=== PATIENT | male | born 1980 | race African-American/Black ===

== ENCOUNTER 2018-12-19 02:22 | Inpatient (IN) ==
[2018-12-19] MEDS ORDERED: SODIUM CHLORIDE 0.9% 1,000 ML IV STA (04:23)
[2018-12-19 04:37] LABS: Basophils % 0.3 % (0.0-0.8); Eosinophils % 0.2 % (0.00-10.9); Hematocrit 31.2 VOL% (42.0-52.0); Hemoglobin 10.4 GM/DL (14.0-18.0); Immature Granulocytes % 0.5 %; Immature Granulocytes Absolute 0.03 #; Lymphocytes # 1.6 10*3/uL (1.4-4.0); Lymphocytes % 23.9 % (21.2-54.2); Mean Corpuscular HGB Conc 33.3 GM/DL (32-36); Mean Corpuscular Volume 73.4 FL (87-102); Mean Platelet Volume 12.1 FL (9.6-12.0); Monocytes % 16.6 % (1.7-12.7); Neutrophils % 58.5 % (38.7-73.9); Platelet Count 88 T/CUMM (130-400); Red Blood Count 4.25 MC/CUMM (3.8-5.5); Red Cell Distribution Width 15.6 % (9.3-17.3); White Blood Count 6.6 T/CUMM (4-12)
[2018-12-19 04:49] LABS: Alanine Aminotransferase 273 U/L (16-61); Albumin 3.1 G/DL (3.4-5.0); Alkaline Phosphatase 40 U/L (45-117); Aspartate Amino Transferase 207 U/L (0-37); Blood Urea Nitrogen 25 MG/DL (7-18); Calcium 8.4 MG/DL (8.5-10.1); Glucose 90 MG/DL (74-106); Osmolality,Calculated 284.3 MOS/KG (273-304); Total Protein 6.7 G/DL (6.4-8.3)
[2018-12-19] MEDS ORDERED: LORazepam 2 MG/1 ML VIAL IV STA ×2 (04:56→05:48)
[2018-12-19] MEDS ORDERED: LORazepam 2 MG/1 ML VIAL ONE (04:57)
[2018-12-19 05:12] LABS: Lymphocytes 23 % (20-55); Nucleated Red Blood Cells 1 (0-5); Segmented Neutrophils 68 % (50-85); Total Cells Counted 100
[2018-12-19 05:13] LABS: Platelet Estimate Decreased; Polychromasia Few; Target Cells Few
[2018-12-19] MEDS ORDERED: KETAMINE 500 MG/10 ML VIAL IM STA (07:30)
[2018-12-19] MEDS ORDERED: KETAMINE 500 MG/10 ML VIAL ONE (07:32)
[2018-12-19] MEDS ORDERED: ONDANSETRON 4 MG/2 ML VIAL IV PRN (08:38)
[2018-12-19] MEDS ORDERED: ALBUTEROL 2.5 MG/3 ML NEB RESP TX PRN (08:38)
[2018-12-19 10:44] LABS: Amorphous Crystals,Urine Few /HPF (Few); Apearance,Urine Slightly Hazy (Clear); Bacteria,Urine Occasional /HPF (Few); Bilirubin,Urine Negative (Negative); Blood, Urine Small mg/dL (Negative); Glucose,Urine (UA) Negative (Negative); Hyaline Casts,Urine 16 /LPF (0-3); Ketones,Urine 5 mg/dL (Negative); Mucus,Urine Few /LPF (Occasional); Nitrite,Urine Negative (Negative); Protein,Urine >=500 MG/DL; RBC,Urine 4 /HPF (0-4); Urine Color Amber (Yellow); Urine Specific Gravity 1.028 (1.001-1.035); WBC,Urine 2 /HPF (0-6)
[2018-12-19 10:47] LABS: Barbiturates Screen,Urine Negative (Negative); Benzodiazepines Screen,Urine Positive (Negative); Cannabinoid Screen,Urine Negative (Negative); Opiate Screen,Urine Negative (Negative); Phencyclidine Screen,Urine Negative (Negative)
[2018-12-19] MEDS ORDERED: PANTOPRAZOLE 40 MG VIAL IV ONE (11:25)
[2018-12-19] MEDS: SODIUM CHLORIDE 0.9% 1,000 ML IV SCH (11:28)
[2018-12-19] MEDS: ENOXAPARIN 40 MG/0.4 ML SYRINGE SUBCUT SCH (11:32)
[2018-12-19] MEDS: FAMOTIDINE 20 MG/2 ML VIAL IV SCH ×2 (11:33→21:59)
[2018-12-19] MEDS: LORazepam 2 MG/1 ML VIAL IV PRN (13:04)
[2018-12-19] MEDS: hydrALAZINE 20 MG/1 ML VIAL IV PRN (23:11)
[2018-12-20] MEDS: SODIUM CHLORIDE 0.9% 1,000 ML IV SCH ×2 (00:50→15:35)
[2018-12-20 03:55] LABS: Basophils % 0.5 % (0.0-0.8); Eosinophils # 0.1 10*3/uL (0.0-0.87); Hematocrit 37.9 VOL% (42.0-52.0); Hemoglobin 12.2 GM/DL (14.0-18.0); Immature Granulocytes % 0.3 %; Immature Granulocytes Absolute 0.02 #; Lymphocytes # 2.7 10*3/uL (1.4-4.0); Lymphocytes % 34.9 % (21.2-54.2); Mean Corpuscular HGB Conc 32.2 GM/DL (32-36); Mean Corpuscular Volume 73.6 FL (87-102); Monocytes % 14.2 % (1.7-12.7); Neutrophils % 49.1 % (38.7-73.9); Platelet Count 143 T/CUMM (130-400); Red Blood Count 5.15 MC/CUMM (3.8-5.5); Red Cell Distribution Width 15.8 % (9.3-17.3); White Blood Count 7.6 T/CUMM (4-12)
[2018-12-20 04:19] LABS: Albumin 3.1 G/DL (3.4-5.0); Risk Ratio 3.29; Thyroid Stimulating Hormone 1.1 uIU/ml (0.358-3.74); Total Protein 7.3 G/DL (6.4-8.3); VLDL CHOLESTEROL 19.4 MG/DL
[2018-12-20 04:55] LABS: Hypochromasia 1+; Platelet Estimate Normal
[2018-12-20 04:56] LABS: Microcytosis Slight
[2018-12-20 05:01] LABS: Hepatitis B Core IgM Quant 0.05 Index; Hepatitis B Surface Ag Quant < 0.10 Index; Hepatitis B Surface Ag Result Negative (Negative); Hepatitis C Virus Ab Quant < 0.02 Index; Hepatitis C Virus Ab Result Negative (Negative)
[2018-12-20] MEDS: ENOXAPARIN 40 MG/0.4 ML SYRINGE SUBCUT SCH (09:35)
[2018-12-20] MEDS: FAMOTIDINE 20 MG/2 ML VIAL IV SCH ×2 (09:35→20:02)
[2018-12-20] MEDS: NICOTINE 21 MG/24 HR PATCH TRANSDERM SCH (11:41)
[2018-12-20] MEDS: chlordiazePOXIDE 25 MG CAPSULE PO SCH ×4 (11:45→20:02)
[2018-12-21] MEDS: SODIUM CHLORIDE 0.9% 1,000 ML IV SCH ×3 (04:58→21:59)
[2018-12-21 05:01] LABS: Basophils # 0.1 10*3/uL (0.0-0.2); Eosinophils # 0.1 10*3/uL (0.0-0.87); Eosinophils % 2.2 % (0.00-10.9); Hematocrit 36.5 VOL% (42.0-52.0); Hemoglobin 11.8 GM/DL (14.0-18.0); Immature Granulocytes % 0.3 %; Immature Granulocytes Absolute 0.02 #; Lymphocytes # 2.6 10*3/uL (1.4-4.0); Lymphocytes % 41.9 % (21.2-54.2); Mean Corpuscular HGB Conc 32.3 GM/DL (32-36); Mean Corpuscular Volume 73.7 FL (87-102); Mean Platelet Volume 11.7 FL (9.6-12.0); Neutrophils % 37.6 % (38.7-73.9); Platelet Count 199 T/CUMM (130-400); Red Blood Count 4.95 MC/CUMM (3.8-5.5); Red Cell Distribution Width 15.5 % (9.3-17.3); White Blood Count 6.3 T/CUMM (4-12)
[2018-12-21 05:23] LABS: Eosinophils 1 % (0-10); Lymphocytes 40 % (20-55); Platelet Estimate Adequate; Segmented Neutrophils 48 % (50-85); Total Cells Counted 100
[2018-12-21 05:24] LABS: Hypochromasia 1+
[2018-12-21 05:26] LABS: Microcytosis Slight
[2018-12-21 05:33] LABS: Albumin 2.7 G/DL (3.4-5.0); Bilirubin,Total 0.6 MG/DL (0.2-1.0); Calcium 8.9 MG/DL (8.5-10.1); Osmolality,Calculated 281.1 MOS/KG (273-304); Total Protein 6.8 G/DL (6.4-8.3)
[2018-12-21] MEDS: hydrALAZINE 20 MG/1 ML VIAL IV PRN (07:50)
[2018-12-21] MEDS: ENOXAPARIN 40 MG/0.4 ML SYRINGE SUBCUT SCH (09:56)
[2018-12-21] MEDS: chlordiazePOXIDE 25 MG CAPSULE PO SCH ×4 (09:56→21:59)
[2018-12-21] MEDS: FAMOTIDINE 20 MG/2 ML VIAL IV SCH ×2 (09:56→21:59)
[2018-12-21] MEDS ORDERED: LORazepam 2 MG/1 ML VIAL ONE (10:14)
[2018-12-21] MEDS: LORazepam 2 MG/1 ML VIAL IV PRN (10:19)
[2018-12-21] MEDS: NICOTINE 21 MG/24 HR PATCH TRANSDERM SCH (13:32)
[2018-12-22 05:21] LABS: Basophils % 0.4 % (0.0-0.8); Eosinophils # 0.1 10*3/uL (0.0-0.87); Eosinophils % 1.9 % (0.00-10.9); Hematocrit 38.4 VOL% (42.0-52.0); Hemoglobin 12.3 GM/DL (14.0-18.0); Immature Granulocytes % 0.4 %; Immature Granulocytes Absolute 0.03 #; Lymphocytes # 3.1 10*3/uL (1.4-4.0); Lymphocytes % 42.4 % (21.2-54.2); Mean Corpuscular Volume 74.1 FL (87-102); Mean Platelet Volume 10.6 FL (9.6-12.0); Monocytes % 17.7 % (1.7-12.7); Neutrophils % 37.2 % (38.7-73.9); Platelet Count 211 T/CUMM (130-400); Red Blood Count 5.18 MC/CUMM (3.8-5.5); Red Cell Distribution Width 15.8 % (9.3-17.3); White Blood Count 7.4 T/CUMM (4-12)
[2018-12-22 05:53] LABS: Albumin 2.9 G/DL (3.4-5.0); Bilirubin,Total 0.4 MG/DL (0.2-1.0); Calcium 8.9 MG/DL (8.5-10.1); Osmolality,Calculated 280.1 MOS/KG (273-304); Total Protein 7.2 G/DL (6.4-8.3)
[2018-12-22 05:54] LABS: Eosinophils 1 % (0-10); Lymphocytes 40 % (20-55); Nucleated Red Blood Cells 1 (0-5); Segmented Neutrophils 47 % (50-85); Total Cells Counted 100
[2018-12-22 05:55] LABS: Platelet Estimate Adequate; Schistocytes Few; Target Cells Few
[2018-12-22] MEDS: chlordiazePOXIDE 25 MG CAPSULE PO SCH ×4 (09:54→21:14)
[2018-12-22] MEDS: FAMOTIDINE 20 MG/2 ML VIAL IV SCH ×2 (09:55→21:14)
[2018-12-22] MEDS: ENOXAPARIN 40 MG/0.4 ML SYRINGE SUBCUT SCH (09:59)
[2018-12-22] MEDS: NICOTINE 21 MG/24 HR PATCH TRANSDERM SCH (10:12)
[2018-12-22] MEDS: SODIUM CHLORIDE 0.9% 1,000 ML IV SCH (11:12)
[2018-12-23] MEDS: SODIUM CHLORIDE 0.9% 1,000 ML IV SCH ×2 (07:46→09:15)
[2018-12-23] MEDS: NICOTINE 21 MG/24 HR PATCH TRANSDERM SCH (09:41)
[2018-12-23] MEDS: ENOXAPARIN 40 MG/0.4 ML SYRINGE SUBCUT SCH (09:42)
[2018-12-23] MEDS: chlordiazePOXIDE 25 MG CAPSULE PO SCH ×3 (09:43→21:47)
[2018-12-23] MEDS: FAMOTIDINE 20 MG/2 ML VIAL IV SCH ×2 (09:46→21:47)
[2018-12-24] MEDS: SODIUM CHLORIDE 0.9% 1,000 ML IV SCH ×2 (00:21→10:30)
[2018-12-24] MEDS: chlordiazePOXIDE 25 MG CAPSULE PO SCH ×5 (10:00→22:20)
[2018-12-24] MEDS: ENOXAPARIN 40 MG/0.4 ML SYRINGE SUBCUT SCH (10:01)
[2018-12-24] MEDS: NICOTINE 21 MG/24 HR PATCH TRANSDERM SCH (10:02)
[2018-12-24] MEDS: FAMOTIDINE 20 MG/2 ML VIAL IV SCH (10:07)
[2018-12-25] MEDS: NICOTINE 21 MG/24 HR PATCH TRANSDERM SCH (08:40)
[2018-12-25] MEDS: ENOXAPARIN 40 MG/0.4 ML SYRINGE SUBCUT SCH (08:40)
[2018-12-25] MEDS: chlordiazePOXIDE 25 MG CAPSULE PO SCH (08:40)
[2018-12-25 08:46] VITALS: BP 129/74
== END 2018-12-25 11:29 | DRG 897 ==
LOC: N.ED 02:22 → N.EDINP 08:37 → SUATTDRO 08:37 → N.CC 13:46 → N.4E 12-21 18:24
PROVIDERS: ADMIT Internal Medicine; ATTEND Internal Medicine

== ENCOUNTER 2022-03-22 23:48 | Inpatient (IN) ==
[2022-03-23 00:28] LABS: Alanine Aminotransferase 223 U/L (16-61); Albumin 3.4 G/DL (3.4-5.0); Alkaline Phosphatase 41 U/L (45-117); Aspartate Amino Transferase 147 U/L (0-37); Bilirubin,Total < 0.39 MG/DL (0.20-1.00); Blood Urea Nitrogen 8 MG/DL (7-18); Calcium 9.2 MG/DL (8.5-10.1); Carbon Dioxide 27 MMOL/L (21-32); Chloride 106 MMOL/L (98-107); Glucose 96 MG/DL (74-106); Osmolality,Calculated 274.5 MOS/KG (273-304); Potassium 4.1 MMOL/L (3.5-5.1); Sodium 139 MMOL/L (136-145); Total Protein 6.8 G/DL (6.4-8.2)
[2022-03-23] MEDS ORDERED: SODIUM CHLORIDE 0.9% 1,000 ML IV STA (00:48)
[2022-03-23] MEDS ORDERED: ASPIRIN CHEW 81 MG TABLET PO STA (00:48)
[2022-03-23] MEDS ORDERED: MORPHINE 2 MG/1 ML SYRINGE IV STA (00:48)
[2022-03-23] MEDS ORDERED: NITROGLYCERIN SL 0.4 MG TABLET SL STA (00:48)
[2022-03-23 00:49] LABS: Basophils # 0.1 10*3/uL (0.0-0.2); Basophils % 0.9 % (0.0-0.8); Eosinophils # 0.1 10*3/uL (0.0-0.87); Eosinophils % 1.7 % (0.00-10.9); Hematocrit 33.3 VOL% (42.0-52.0); Immature Granulocytes % 0.3 %; Immature Granulocytes Absolute 0.02 #; Lymphocytes # 2.5 10*3/uL (1.4-4.0); Lymphocytes % 35.2 % (21.2-54.2); Mean Corpuscular Volume 73.7 FL (87-102); Mean Platelet Volume 11.2 FL (9.6-12.0); Monocytes # 0.8 10*3/uL (0.11-0.8); Monocytes % 11.3 % (1.7-12.7); Neutrophils % 50.6 % (38.7-73.9); Platelet Count 146 T/CUMM (130-400); Red Blood Count 4.52 MC/CUMM (3.8-5.5); Red Cell Distribution Width 15.6 % (9.3-17.3)
[2022-03-23 01:13] LABS: Thyroid Stimulating Hormone 0.801 uIU/ml (0.358-3.74)
[2022-03-23] MEDS ORDERED: chlordiazePOXIDE 25 MG CAPSULE PO PRN (02:10)
[2022-03-23] MEDS ORDERED: MORPHINE 2 MG/1 ML SYRINGE IV PRN (02:10)
[2022-03-23] MEDS ORDERED: ENOXAPARIN 80 MG/0.8 ML SYRINGE SUBCUT SCH (02:30)
[2022-03-23] MEDS: NITROGLYCERIN 2% OINT 1 INCH/GM PACK TOP SCH ×2 (02:37→12:17)
[2022-03-23 03:56] LABS: Risk Ratio 2.75; VLDL Cholesterol 27.8 MG/DL
[2022-03-23 04:01] LABS: Mucus,Urine Occasional /LPF (Occasional); RBC,Urine <1 /HPF (0-4)
[2022-03-23 04:02] LABS: Bilirubin,Urine Negative (Negative); Blood, Urine Negative (Negative); Glucose,Urine (UA) Negative (Negative); Ketones,Urine Negative (Negative); Nitrite,Urine Negative (Negative); Protein,Urine 30 mg/dL (Negative); Urine Appearance Clear (Clear); Urine Color Yellow (Yellow); Urine Urobilinogen 0.2 eU/dL (<2.0); Urine pH 6.5 (4.5-8.0)
[2022-03-23 04:06] LABS: Barbiturates Screen,Urine Negative (Negative); Benzodiazepines Screen,Urine Positive (Negative); Cannabinoid Screen,Urine Negative (Negative); Opiate Screen,Urine Positive (Negative); Phencyclidine Screen,Urine Negative (Negative)
[2022-03-23 07:47] LABS: Alanine Aminotransferase 213 U/L (16-61); Albumin 3.1 G/DL (3.4-5.0); Alkaline Phosphatase 36 U/L (45-117); Aspartate Amino Transferase 156 U/L (0-37); Bilirubin,Total < 0.39 MG/DL (0.20-1.00); Blood Urea Nitrogen 8 MG/DL (7-18); Carbon Dioxide 28 MMOL/L (21-32); Chloride 105 MMOL/L (98-107); Glucose 91 MG/DL (74-106); Osmolality,Calculated 272.7 MOS/KG (273-304); Potassium 3.3 MMOL/L (3.5-5.1); Sodium 138 MMOL/L (136-145); Total Protein 6.8 G/DL (6.4-8.2)
[2022-03-23] MEDS ORDERED: POTASSIUM CHLORIDE 20 MEQ TABLET PO ONE (08:12)
[2022-03-23] MEDS ORDERED: ASPIRIN EC 325 MG TABLET PO SCH (09:00)
[2022-03-23] MEDS ORDERED: HEPARIN/NACL 0.9% 2 UNITS/ML 2,000 UNIT/1,000 ML BAG IV ONE (09:42)
[2022-03-23 09:43] LABS: Basophils % 0.6 % (0.0-0.8); Eosinophils # 0.1 10*3/uL (0.0-0.87); Eosinophils % 0.7 % (0.00-10.9); Hematocrit 33.3 VOL% (42.0-52.0); Immature Granulocytes % 0.3 %; Immature Granulocytes Absolute 0.02 #; Lymphocytes # 1.9 10*3/uL (1.4-4.0); Mean Corpuscular Volume 73.7 FL (87-102); Mean Platelet Volume 11.3 FL (9.6-12.0); Monocytes # 0.9 10*3/uL (0.11-0.8); Monocytes % 12.6 % (1.7-12.7); Neutrophils % 57.8 % (38.7-73.9); Platelet Count 160 T/CUMM (130-400); Red Blood Count 4.52 MC/CUMM (3.8-5.5); Red Cell Distribution Width 15.8 % (9.3-17.3); White Blood Count 6.9 T/CUMM (4-12)
[2022-03-23] MEDS ORDERED: SODIUM CHLORIDE 0.9% 1,000 ML IV SCH (10:00)
[2022-03-23] MEDS ORDERED: CLOPIDOGREL 300 MG TABLET ONE (10:03)
[2022-03-23] MEDS ORDERED: MIDAZOLAM 2 MG/2 ML VIAL ONE (10:12)
[2022-03-23] MEDS ORDERED: fentaNYL 100 MCG/2 ML VIAL ONE (10:12)
[2022-03-23] MEDS ORDERED: NITROGLYCERIN DRIP 50 MG/250 ML BOTTLE IV ONE (10:40)
[2022-03-23] MEDS ORDERED: HEPARIN 5,000 UNIT/1 ML VIAL ONE (10:40)
[2022-03-23] MEDS ORDERED: EPTIFIBATIDE 75 MG/100 ML BOTTLE IV ONE (11:13)
[2022-03-23] MEDS ORDERED: EPTIFIBATIDE 75 MG/100 ML BOTTLE IV SCH (11:30)
[2022-03-23] MEDS: PANTOPRAZOLE 40 MG TABLET PO SCH (13:25)
[2022-03-23] MEDS: THIAMINE 100 MG TABLET PO SCH (13:25)
[2022-03-23] MEDS: FOLIC ACID 1 MG TABLET PO SCH (13:26)
[2022-03-23] MEDS: NICOTINE 21 MG/24 HR PATCH TRANSDERM SCH (14:26)
[2022-03-23] MEDS: ACETAMINOPHEN 325 MG TABLET PO PRN (17:09)
[2022-03-23] MEDS: ATORVASTATIN 40 MG TABLET PO SCH (20:33)
[2022-03-23] MEDS: METOPROLOL TARTRATE 50 MG TABLET PO SCH (20:33)
[2022-03-24 05:47] LABS: Basophils # 0.1 10*3/uL (0.0-0.2); Basophils % 0.7 % (0.0-0.8); Eosinophils # 0.2 10*3/uL (0.0-0.87); Hematocrit 34.3 VOL% (42.0-52.0); Hemoglobin 11.5 GM/DL (14.0-18.0); Immature Granulocytes % 0.3 %; Immature Granulocytes Absolute 0.02 #; Lymphocytes # 1.9 10*3/uL (1.4-4.0); Lymphocytes % 25.3 % (21.2-54.2); Mean Corpuscular HGB Conc 33.5 GM/DL (32-36); Mean Corpuscular Volume 74.2 FL (87-102); Mean Platelet Volume 11.3 FL (9.6-12.0); Monocytes # 1.3 10*3/uL (0.11-0.8); Monocytes % 17.2 % (1.7-12.7); Neutrophils % 54.5 % (38.7-73.9); Platelet Count 155 T/CUMM (130-400); Red Blood Count 4.62 MC/CUMM (3.8-5.5); Red Cell Distribution Width 15.7 % (9.3-17.3); White Blood Count 7.7 T/CUMM (4-12)
[2022-03-24 06:16] LABS: Calcium 8.7 MG/DL (8.5-10.1); Osmolality,Calculated 279.4 MOS/KG (273-304); Potassium 3.6 MMOL/L (3.5-5.1)
[2022-03-24 06:17] LABS: Band Neutrophils 1 % (0-10); Eosinophils 5 % (0-10); Lymphocytes 34 % (20-55); Total Cells Counted 100
[2022-03-24 06:18] LABS: Hypochromia Slight; Microcytosis Slight; Platelet Estimate Adequate; Target Cells 1+
[2022-03-24] MEDS: NICOTINE 21 MG/24 HR PATCH TRANSDERM SCH (09:05)
[2022-03-24] MEDS: ASPIRIN EC 81 MG TABLET PO SCH (09:05)
[2022-03-24] MEDS: METOPROLOL TARTRATE 50 MG TABLET PO SCH (09:05)
[2022-03-24] MEDS: ENOXAPARIN 40 MG/0.4 ML SYRINGE SUBCUT SCH (09:06)
[2022-03-24] MEDS: CLOPIDOGREL 75 MG TABLET PO SCH (09:06)
[2022-03-24] MEDS: FOLIC ACID 1 MG TABLET PO SCH (09:06)
[2022-03-24] MEDS: THIAMINE 100 MG TABLET PO SCH (09:06)
[2022-03-24] MEDS: PANTOPRAZOLE 40 MG TABLET PO SCH (09:06)
[2022-03-24] MEDS ORDERED: LORazepam 2 MG/1 ML VIAL IV PRN (10:47)
[2022-03-24] MEDS ORDERED: NITROGLYCERIN SL 0.4 MG TABLET SL PRN (12:58)
[2022-03-24] MEDS: guaiFENesin/DM ER 600-30 MG TABLET PO PRN (18:16)
[2022-03-24] MEDS: levETIRAcetam 250 MG TABLET PO SCH (21:28)
[2022-03-24] MEDS: ATORVASTATIN 40 MG TABLET PO SCH (21:28)
[2022-03-24] MEDS: carvediloL 12.5 MG TABLET PO SCH (21:28)
[2022-03-24] MEDS: ACETAMINOPHEN 325 MG TABLET PO PRN (23:58)
[2022-03-25 05:41] LABS: Basophils # 0.1 10*3/uL (0.0-0.2); Basophils % 0.7 % (0.0-0.8); Eosinophils # 0.1 10*3/uL (0.0-0.87); Eosinophils % 1.2 % (0.00-10.9); Hematocrit 33.9 VOL% (42.0-52.0); Hemoglobin 11.2 GM/DL (14.0-18.0); Immature Granulocytes % 0.4 %; Immature Granulocytes Absolute 0.03 #; Lymphocytes # 1.1 10*3/uL (1.4-4.0); Lymphocytes % 14.7 % (21.2-54.2); Mean Corpuscular Volume 73.9 FL (87-102); Mean Platelet Volume 11.6 FL (9.6-12.0); Monocytes # 0.9 10*3/uL (0.11-0.8); Monocytes % 11.9 % (1.7-12.7); Neutrophils % 71.1 % (38.7-73.9); Platelet Count 172 T/CUMM (130-400); Red Blood Count 4.59 MC/CUMM (3.8-5.5); Red Cell Distribution Width 15.6 % (9.3-17.3); White Blood Count 7.5 T/CUMM (4-12)
[2022-03-25 06:14] LABS: Calcium 9.6 MG/DL (8.5-10.1); Osmolality,Calculated 277.4 MOS/KG (273-304); Potassium 3.8 MMOL/L (3.5-5.1)
[2022-03-25] MEDS ORDERED: ONDANSETRON 4 MG/2 ML VIAL IV PRN (08:10)
[2022-03-25] MEDS: ASPIRIN EC 81 MG TABLET PO SCH (08:37)
[2022-03-25] MEDS: CLOPIDOGREL 75 MG TABLET PO SCH (08:37)
[2022-03-25] MEDS: NICOTINE 21 MG/24 HR PATCH TRANSDERM SCH (08:37)
[2022-03-25] MEDS: guaiFENesin/DM ER 600-30 MG TABLET PO PRN (08:37)
[2022-03-25] MEDS: carvediloL 12.5 MG TABLET PO SCH ×2 (08:38→20:06)
[2022-03-25] MEDS: PANTOPRAZOLE 40 MG TABLET PO SCH (08:38)
[2022-03-25] MEDS: ENOXAPARIN 40 MG/0.4 ML SYRINGE SUBCUT SCH (08:39)
[2022-03-25] MEDS: levETIRAcetam 250 MG TABLET PO SCH ×2 (08:41→20:06)
[2022-03-25] MEDS: SODIUM CHLORIDE 0.45% 1,000 ML IV SCH ×3 (11:50→22:49)
[2022-03-25] MEDS ORDERED: DIAZEPAM 5 MG TABLET PO ONE (11:58)
[2022-03-25] MEDS ORDERED: diphenhydrAMINE CAP 50 MG CAPSULE PO ONE (11:58)
[2022-03-25] MEDS ORDERED: HEPARIN/NACL 0.9% 2 UNITS/ML 1,000 UNIT/500 ML BAG IV ONE (12:51)
[2022-03-25] MEDS ORDERED: MIDAZOLAM 2 MG/2 ML VIAL ONE (12:56)
[2022-03-25] MEDS ORDERED: fentaNYL 100 MCG/2 ML VIAL ONE (12:56)
[2022-03-25] MEDS ORDERED: NITROGLYCERIN DRIP 50 MG/250 ML BOTTLE IV ONE (13:14)
[2022-03-25] MEDS ORDERED: HEPARIN 5,000 UNIT/1 ML VIAL ONE ×2 (13:16→13:28)
[2022-03-25] MEDS: THIAMINE 100 MG TABLET PO SCH (16:24)
[2022-03-25] MEDS: FOLIC ACID 1 MG TABLET PO SCH (16:24)
[2022-03-25] MEDS: MULTIVITAMIN (CENTRUM) TABLET PO SCH (16:24)
[2022-03-25] MEDS: ACETAMINOPHEN 325 MG TABLET PO PRN (19:21)
[2022-03-25] MEDS ORDERED: ALBUTEROL 2.5 MG/3 ML NEB RESP TX PRN (19:35)
[2022-03-25] MEDS ORDERED: IBUPROFEN 400 MG TABLET PO PRN (19:35)
[2022-03-25] MEDS: guaiFENesin/DM ER 600-30 MG TABLET PO SCH (20:06)
[2022-03-25] MEDS: ATORVASTATIN 40 MG TABLET PO SCH (20:06)
[2022-03-25] MEDS: OSELTAMIVIR 75 MG CAPSULE PO SCH (20:06)
[2022-03-26] MEDS: ACETAMINOPHEN 325 MG TABLET PO PRN ×2 (04:30→11:58)
[2022-03-26 05:30] LABS: Basophils # 0.1 10*3/uL (0.0-0.2); Basophils % 0.5 % (0.0-0.8); Eosinophils % 0.1 % (0.00-10.9); Hematocrit 31.1 VOL% (42.0-52.0); Hemoglobin 10.4 GM/DL (14.0-18.0); Immature Granulocytes % 0.4 %; Immature Granulocytes Absolute 0.04 #; Lymphocytes # 1.4 10*3/uL (1.4-4.0); Lymphocytes % 13.5 % (21.2-54.2); Mean Corpuscular HGB Conc 33.4 GM/DL (32-36); Mean Corpuscular Volume 73.5 FL (87-102); Mean Platelet Volume 10.8 FL (9.6-12.0); Monocytes % 18.4 % (1.7-12.7); Neutrophils % 67.1 % (38.7-73.9); Platelet Count 143 T/CUMM (130-400); Red Blood Count 4.23 MC/CUMM (3.8-5.5); Red Cell Distribution Width 15.4 % (9.3-17.3); White Blood Count 10.6 T/CUMM (4-12)
[2022-03-26 05:52] LABS: Calcium 8.9 MG/DL (8.5-10.1); Osmolality,Calculated 268.2 MOS/KG (273-304); Potassium 3.5 MMOL/L (3.5-5.1)
[2022-03-26 06:05] LABS: Band Neutrophils 2 % (0-10); Lymphocytes 19 % (20-55); Target Cells 1+; Total Cells Counted 100
[2022-03-26 06:06] LABS: Hypochromia Slight; Microcytosis Slight; Platelet Estimate Adequate
[2022-03-26] MEDS ORDERED: MAGNESIUM SULF RIDER 4 GM/100 ML PREMIX IV ONE (07:32)
[2022-03-26] MEDS ORDERED: carvediloL 25 MG TABLET PO SCH (09:00)
[2022-03-26] MEDS: MULTIVITAMIN (CENTRUM) TABLET PO SCH (09:48)
[2022-03-26] MEDS: ASPIRIN EC 81 MG TABLET PO SCH (09:48)
[2022-03-26] MEDS: SODIUM CHLORIDE 0.45% 1,000 ML IV SCH (09:48)
[2022-03-26] MEDS: levETIRAcetam 250 MG TABLET PO SCH (09:48)
[2022-03-26] MEDS: PANTOPRAZOLE 40 MG TABLET PO SCH (09:48)
[2022-03-26] MEDS: guaiFENesin/DM ER 600-30 MG TABLET PO SCH (09:49)
[2022-03-26] MEDS: CLOPIDOGREL 75 MG TABLET PO SCH (09:49)
[2022-03-26] MEDS: FOLIC ACID 1 MG TABLET PO SCH (09:49)
[2022-03-26] MEDS: THIAMINE 100 MG TABLET PO SCH (09:49)
[2022-03-26] MEDS: ENOXAPARIN 40 MG/0.4 ML SYRINGE SUBCUT SCH (09:50)
[2022-03-26] MEDS: OSELTAMIVIR 75 MG CAPSULE PO SCH (09:50)
[2022-03-26] MEDS: NICOTINE 21 MG/24 HR PATCH TRANSDERM SCH (09:51)
[2022-03-26] MEDS ORDERED: VALSARTAN 80 MG TABLET PO SCH (11:30)
[2022-03-26 12:00] VITALS: BP 139/90
== END 2022-03-26 15:39 | disposition home or self-care (01) | DRG 247 ==
LOC: N.EDINP 23:48 → N.ED 23:48 → N.TELES 03-23 12:17 → N.TELEN 03-25 19:34
PROVIDERS: ADMIT Internal Medicine; ATTEND Internal Medicine
PROC: CLCCHCL (ICD-10-PCS; 2022-03-23 10:15)